=== PATIENT | female | born 1980 | race African-American/Black ===

== ENCOUNTER 2019-05-22 07:45 | Inpatient (IN) | payer OTHER ==
[2019-05-22] MEDS ORDERED: ELECTROLYTE-148 SOLN 1,000 ML IV SCH (08:00)
--- NOTE | 2019-05-22 08:37 | HP ---
Past Medical History - Primary Care Physician PCP:: Clark Henson - Admission Chief Complaint: 39 weeks, no care , AMA History of Present Illness: 38 yo f g 1 po no care , by late sono 0n 04/22/19 35 weeks , she is now 39 weeks, c/o of contraction , no ROM , no bleeding., GBS unknown, declined iv antibiotics , awrae of risks, cx 8cm 100 vx -3 membrane bulging , arom done scalp electrode applied, fhr cat 2 History Source: Patient Limitations to Obtaining History: No Limitations - Past Medical History ...: 2 ...Para: 1 ...EDC by Dates: 05/27/19 - Past Surgical History Hx Myomectomy: No Hx Transabdominal Cerclage: No - Alcohol/Substance Use Hx Alcohol Use: No History of Substance Use: reports: None - Social History Usual Living Arrangement: Yes: With Spouse History of Recent Travel: No Home Medications - Allergies Allergies/Adverse Reactions: Allergies Allergy/AdvReac Type Severity Reaction Status Date / Time No Known Allergies Allergy Verified 05/20/19 08:57 - Home Medications Home Medications: Ambulatory Orders Pnv No.95/Ferrous Fum/Folic AC [ Formula] 1 each PO DAILY 04/22/19 Review of Systems - Review of Systems Constitutional: reports: No Symptoms Eyes: reports: No Symptoms HENT: reports: No Symptoms Neck: reports: No Symptoms Cardiovascular: reports: No Symptoms Respiratory: reports: No Symptoms Gastrointestinal: reports: No Symptoms Genitourinary: reports: No Symptoms Breasts: reports: No Symptoms Reported Musculoskeletal: reports: No Symptoms Integumentary: reports: No Symptoms Neurological: reports: No Symptoms Endocrine: reports: No Symptoms Hematology/Lymphatic: reports: No Symptoms Psychiatric: reports: No Symptoms Physical Exam - Maternity Constitutional: Yes: Well Nourished, No Distress, Calm Eyes: Yes: WNL, Conjunctiva Clear, EOM Intact HENT: Yes: WNL, Atraumatic, Normocephalic Neck: Yes: WNL, Supple, Trachea Midline Cardiovascular: Yes: WNL, Regular Rate and Rhythm Breast(s): Yes: WNL - Abdominal Exam/OB Fundal Height: 40 Number of Fetuses: Single Presentation: Vertex Contractions: Yes Regularity: Irregular Intensity: Strong Monitor Mode: External Heart Rate Location: [facility] Category: II Accelerations: Non-Uniform Decelerations: Variable - Vaginal Exam/OB Vaginal Bleediing: No Speculum Exam: No Dilatation (cm): 8 cm Effacement (%): 100 Amniotic Membrane Status: Bulging Presentation: Vertex/Position Station: -3 - Physical Exam Musculoskeletal: Yes: WNL Extremities: Yes: WNL Edema: Yes Edema: LLE: Trace, RLE: Trace Deep Tendon Reflex Grade: Normal +2 Psychiatric: Yes: WNL Hemorrhage Risk Assessment - Risk Factors Medium Risk Factors: Yes: None High Risk Factors: Yes: None Risk Score: 1 Risk Level: Medium Risk Problem List - Problems (1) with 39 completed weeks gestation Code(s): Z3A.39 - 39 WEEKS GESTATION OF (2) Advanced maternal age (AMA) in Code(s): CZJ4615 - (3) No care in current Code(s): O09.30 - SUPRVSN OF PREG W INSUFFICIENT ANTENAT CARE, UNSP TRIMESTER Qualifiers: Trimester: third trimester Qualified Code(s): O09.33 - Supervision of with insufficient care, third trimester (4) Labor established Code(s): FFM0296 - Assessment/Plan admit, fhm scalp electrode applied , clear fluid declined antibiotics pain management
[2019-05-22] MEDS ORDERED: LIDO 2%/EPI 1:200000 PRESRVFRE (20 ML SDVIAL) ONE (08:44)
[2019-05-22] MEDS ORDERED: BUPIVACAINE HCL/PF 2.5 MG/ML - 30 ML VIAL IJ ONE (08:44)
--- NOTE | 2019-05-22 08:45 | PN ---
Progress Note (short form) - Note Progress Note: cx 9 cm vx -2 mr, fhr cat 1 irregular contraction , wants epidural anesthesia. report given to DR Becerril , patient transferred to her service Problem List - Problems (1) with 39 completed weeks gestation Code(s): Z3A.39 - 39 WEEKS GESTATION OF (2) Advanced maternal age (AMA) in Code(s): [id number] - (3) No care in current Code(s): O09.30 - SUPRVSN OF PREG W INSUFFICIENT ANTENAT CARE, UNSP TRIMESTER Qualifiers: Trimester: third trimester Qualified Code(s): O09.33 - Supervision of with insufficient care, third trimester (4) Labor established Code(s): [id number] -
[2019-05-22] MEDS: ELECTROLYTE-148 SOLN 1,000 ML IV SCH ×2 (09:00→13:00)
[2019-05-22] MEDS ORDERED: FENTANYL/BUPIVACAINE/NS/PF - PCEA - 50 ML DISP.SYRIN EP ONE ×2 (09:13→14:01)
[2019-05-22] MEDS ORDERED: NALOXONE HCL 0.4 MG/ML VIAL IVPUSH PRN (09:14)
--- NOTE | 2019-05-22 09:14 | PN ---
Progress Note, Labor Vaginal Exam #1 Labor Exam Date: 05/22/19 Labor Exam Time: 09:14 Heart Rate (range): Cat I Dilatation: 6 Effacement (%): 100 Amniotic Membrane Status: Ruptured Presentation: Vertex/Position Station: -2 Remarks: Assuming care for this patient Now comfortable s/p epidural Cervix only 6cm dilated Expectant management, if no progress at next exam, consider opal Becerril MD
[2019-05-22] MEDS ORDERED: FENTANYL/BUPIVACAINE/NS/PF - PCEA - 50 ML DISP.SYRIN EP SCH (09:15)
[2019-05-22] MEDS ORDERED: AMPICILLIN - 2 GM in SODIUM CHLORIDE 100 ML IVPB ONE (10:00)
[2019-05-22] MEDS ORDERED: AMPICILLIN SODIUM 2 GM VIAL ONE (10:02)
[2019-05-22 10:41] VITALS: BMI 36.3
[2019-05-22 11:23] LABS: COCAINE, UR NEGATIVE ng/ml (CUTOFF=300); METHADONE, UR NEGATIVE ng/ml (CUTOFF=300); OPIATES, URI NEGATIVE ng/ml (CUTOFF=300); PHENCYCLIDINE,URINE NEGATIVE ng/ml (CUTOFF=25); URINE AMPHETAMINES NEGATIVE ng/ml (CUTOFF=500); URINE BARBITURATES NEGATIVE ng/ml (CUTOFF=200); URINE BENZODIAZEPINES NEGATIVE ng/ml (CUTOFF=200)
[2019-05-22] MEDS ORDERED: AMPICILLIN SODIUM 1 GM VIAL ONE (13:11)
[2019-05-22] MEDS: AMPICILLIN - 1 GM in SODIUM CHLORIDE 100 ML IVPB SCH ×2 (13:15→22:57)
[2019-05-22] MEDS ORDERED: OXYTOCIN 20 UNITS in 0.9% NS 20 UNIT/1,000 ML INFUS.BAG IV ONE (15:58)
[2019-05-22] MEDS ORDERED: BENZOCAINE 28 GM HEMORRHOIDAL OINTMENT TP PRN (16:22)
[2019-05-22] MEDS ORDERED: BENZOCAINE 20% 57 GM BOTTLE TP PRN (16:22)
[2019-05-22] MEDS ORDERED: METHYLERGONOVINE MALEATE 0.2 MG/1 ML AMP IM PRN (16:22)
[2019-05-22] MEDS ORDERED: BISACODYL 10 MG SUPP.RECT RC PRN (16:22)
[2019-05-22] MEDS ORDERED: WITCH HAZEL 50% (TUCKS) 40 PAD/JAR PAD TP PRN (16:22)
[2019-05-22] MEDS ORDERED: ACETAMINOPHEN 325 MG TABLET (FP) PO PRN (16:22)
[2019-05-22] MEDS ORDERED: IBUPROFEN 600 MG TABLET (FP) PO PRN (16:22)
--- NOTE | 2019-05-22 16:23 | PN ---
Delivery - Delivery Vaginal Delivery: Spontaneous Type of Anesthesia: Epidural Episiotomy/Laceration: None EBL (cc): 300 Delivery, Single - Stages of Labor Placenta: Yes: Spontaneous - Condition of Gender: Male Position: Right, OA - 1 Minute Total Score: 9 5 Minutes Total Score: 9 - Feeding Plan Initial Plan: Elected not to breastfeed exclusively throughout hospitalization Remarks - Remarks Remarks: of VMI from LINDA position over intact perineum. Term . Epidural anesthesia. Spontaneous delivery of anterior shoulder. Infant placed on maternal abdomen, FSE cut; cord clamped and cut. Infant handed off. Weight pending. Apgars 9/9. Spontaneous delivery of intact placenta with 3VC. Fundus firm. Perineum inspected, no lacerations. EBL 300ml. Mother and baby doing well. Alma Becerril MD
[2019-05-22] MEDS ORDERED: OXYTOCIN 20 UNITS in 0.9% NS 20 UNIT/1,000 ML INFUS.BAG IV SCH (16:30)
--- NOTE | 2019-05-23 06:48 | PN ---
Post Progress Note - Subjective Subjective: Pain controlled. No fevers/chills. Lochia c/w menses Post Day: 1 Type of Delivery: Vital Signs: Vital Signs Temperature 97.7 F 05/22/19 22:47 Pulse Rate 58 L 05/22/19 22:47 Respiratory Rate 20 05/22/19 22:47 Blood Pressure 141/93 05/22/19 22:47 O2 Sat by Pulse Oximetry (%) 100 05/22/19 17:45 Uterus: Yes: Fundus below umbilicus Abdomen/GI: Yes: Abdomen soft, Tolerating PO Lochia: Yes: Rubra Lochia, amount: Small Extremities: Yes: Calves non-tender Perineum: Yes: Intact Activity: Ambulating Assessment/Plan 38yo s/p , PPD#1 Routine PP care PO Pain controll AM CBC pending Anticipate d/c to PPD#2 Lizbeth Becerril MD
[2019-05-23 07:39] LABS: BASO % 0.1 % (0-2.0); EOS % 0.1 % (0-4.5); HEMATOCRIT 28.3 % (32.4-45.2); HEMOGLOBIN 9.3 GM/dL (10.7-15.3); LYMPH % 11.2 % (8-40); MCH 27.6 pg (25.7-33.7); MCHC 32.9 g/dl (32.0-36.0); MEAN CELL VOLUME 83.9 fl (80-96); MEAN PLT VOLUME 8.5 fl (7.5-11.1); MONO % 4.2 % (3.8-10.2); NEUT % 84.4 % (42.8-82.8); PLATELET COUNT 298 K/MM3 (134-434); RBC 3.37 M/mm3 (3.60-5.2); RDW 13.8 % (11.6-15.6); WHITE BLOOD COUNT 15.6 K/mm3 (4.0-10.0)
[2019-05-23] MEDS: PRENATAL VITAMINS W/ FOLIC ACID TABLET (FP) PO SCH (11:01)
[2019-05-23] MEDS ORDERED: SENNOSIDES/DOCUSATE COMBO (SENNA PLUS) TABLET (UD) PO PRN (22:00)
[2019-05-24] MEDS: PRENATAL VITAMINS W/ FOLIC ACID TABLET (FP) PO SCH (10:27)
--- NOTE | 2019-05-24 11:04 | DS ---
Physical Examination Vital Signs: Vital Signs Temperature 98.1 F 05/23/19 22:36 Pulse Rate 96 H 05/23/19 22:36 Respiratory Rate 20 05/23/19 22:36 Blood Pressure 111/69 05/23/19 22:36 O2 Sat by Pulse Oximetry (%) 100 05/22/19 17:45 Constitutional: Yes: Well Nourished, No Distress, Calm Eyes: Yes: WNL, Conjunctiva Clear, EOM Intact HENT: Yes: WNL, Atraumatic, Normocephalic Neck: Yes: WNL, Supple, Trachea Midline Cardiovascular: Yes: WNL, Regular Rate and Rhythm Respiratory: Yes: WNL, Regular, CTA Bilaterally Gastrointestinal: Yes: WNL, Normal Bowel Sounds Musculoskeletal: Yes: WNL Extremities: Yes: WNL Edema: No Integumentary: Yes: WNL Neurological: Yes: WNL, Alert, Oriented ...Motor Strength: WNL Psychiatric: Yes: WNL Labs: CBC, BMP 05/23/19 06:42 Discharge Summary Problems reviewed: Yes Reason For Visit: LABOR ADMIT Current Active Problems Advanced maternal age (AMA) in (Acute) Labor established (Acute) No care in current (Acute) with 39 completed weeks gestation (Acute) Procedures: Principal: Hospital Course: Patient presented in labor She had an uncomplicated She met all milestones She was discharged home on PPD#2 M. MD Jone Condition: Stable - Instructions Diet, Activity, Other Instructions: Regular Diet Referrals: Alma Becerril MD [Staff Physician] - Disposition: HOME - Home Medications Comprehensive Discharge Medication List: Ambulatory Orders Pnv No.95/Ferrous Fum/Folic AC [ Formula] 1 each PO DAILY 04/22/19 Ibuprofen 600 mg PO Q6H PRN #30 tablet 05/24/19
--- NOTE | 2019-05-24 11:22 | CON.PSY ---
Psychiatry Consult Chief Complaint: 38 ywera old female with a history of Schizophrenia chronic seen for Psych evaluation. CVase dsicussed with staff, patients behaviour has been appropriate wuth baby and she is seen bonding well with the baby. No reports of agitaion or harmful behaviour to self or the baby. She attends [facility] for Psych follw up. - Previous Psychiatric Treatment Outpatient: Less than 6 mos ago Inpatient: One prior admission - Previous Substance Abuse Treatment Outpatient: None Inpatient: None - Reason for Previous Treatment Reason for Previous Treatment: Psychotic Episode - Current Medications Current Medications: Active Medications Acetaminophen (Tylenol -) 650 mg PO Q3H PRN PRN Reason: PAIN Last Admin: 05/22/19 22:58 Dose: 650 mg Benzocaine (Americaine 20% [place] -) 1 spray TP PRN PRN PRN Reason: PAIN Benzocaine (Americaine Ointment -) 1 applic TP PRN PRN PRN Reason: PAIN Bisacodyl (Dulcolax Suppository -) 10 mg RC PRN PRN PRN Reason: CONSTIPATION Fentanyl/Bupivacaine/Sodium Chlor (Bupivicaine 0.125%/Fentanyl 2mcg/Ml Pcea) 0 ml EP ASDIR PAYAL; Protocol Last Admin: 05/22/19 09:10 Dose: 10 ml Parenteral Electrolytes (Plasma-Lyte 148 -) 1,000 mls @ 125 mls/hr IV ASDIR PAYAL Last Admin: 05/22/19 13:00 Dose: 125 mls/hr Ampicillin Sodium 1 gm/ Sodium (Chloride) 100 mls @ 200 mls/hr IVPB Q4H [facility] Last Admin: 05/22/19 22:57 Dose: Not Given Oxytocin/Sodium Chloride (Normal Saline+20 Units Oxytocin -) 20 unit in 1,000 mls @ 125 mls/hr IV ASDIR PAYAL Last Admin: 05/22/19 16:15 Dose: 125 mls/hr Ibuprofen (Motrin -) 600 mg PO Q4H PRN PRN Reason: PAIN Last Admin: 05/22/19 22:58 Dose: 600 mg Methylergonovine Maleate (Methergine Injection -) 0.2 mg IM Q4H PRN PRN Reason: EXCESSIVE BLEEDING (L&D) Naloxone HCl (Narcan -) 0.4 mg IVPUSH PRN PRN PRN Reason: Sedation Multivit/Folic Acid/Iron ( Vitamins (Sjr) -) 1 tab PO DAILY PAYAL Last Admin: 05/24/19 10:27 Dose: 1 tab Senna/Docusate Sodium (Pericolace -) 2 tablet PO HS PRN PRN Reason: CONSTIPATION Witch Lisa/Glycerin (Tucks Pads -) 1 pad TP PRN PRN PRN Reason: PAIN - Allergies Allergies: Allergies Allergy/AdvReac Type Severity Reaction Status Date / Time No Known Allergies Allergy Verified 05/22/19 09:59 - Current Living Status Usual Living Arrangement: With Parent - Current Mental Status Evaluation Appearance: Well Groomed Attitude: Cooperative - Affect Affect: Full Range Appropriateness: Appropriate to Content - Mood Mood: Euthymic - Speech/Language Expressive: Coherent - Psychomotor Activity Psychomotor Activity: Normal - Thought Process Thought Process: Intact - Thought Content Hallucinations: Absent Delusions: Absent - Self Perception Self Perception: No Impairment - Cognition Attention: Alert Orientation: Time Memory, Immediate Recall: Intact Memory, Short Term: 3/3 Memory, Remote with Promptin/3 - Concentration Serial Sevens Intact: No Simple Calculations Intact: Yes - Abstraction Proverb Interpretation: Intact Judgement: Intact - Insight Insight: Intact - Impulse Control Impulse Control: Good Control - Suicidal Ideation Suicidal Ideation: No - Homicidal Ideation Homicidal Ideation: No Assessment/Plan 1) Patient is clinically stable. 2) Not suicidal or Homicidal at this time. 3) Patient can be discharged home with her Grand Father, will follow up with her Mental [facility] next week.
[2019-05-24 14:12] VITALS: BP 133/76; PULSE 78; TEMP 98.6
== END 2019-05-24 12:12 | disposition home or self-care (01) | DRG 807 ==
LOC: JLDR 07:45 → J3W 18:10
PROVIDERS: ADMIT Obstetrics & Gynecology; ATTEND Obstetrics & Gynecology
PROC: 10E0XZZ Delivery of Products of Conception, External Approach (ICD-10-PCS; principal; 2019-05-22)
DX: O99.344 Other mental disorders complicating childbirth (principal); Z37.0 Single live birth; F20.9 Schizophrenia, unspecified; Z3A.39 39 weeks gestation of pregnancy
CPT/HCPCS: 36415; 59409; 80307; 85025